=== PATIENT | male | born 1985 | race Caucasian/White ===

== ENCOUNTER 2018-05-09 15:34 | Emergency (ER) | payer OTHER ==
[2018-05-09] MEDS ORDERED: Sodium Chloride 0.9% 10 ML Syringe FLUSH PRN (15:43)
--- NOTE | 2018-05-09 16:35 | EDM.PDOC ---
ED HPI GENERAL MEDICAL PROBLEM - General Chief Complaint: Chest Pain Stated Complaint: [facility] Time Seen by Provider: 05/09/18 15:43 Source of Information: Reports: Patient, RN Notes Reviewed - History of Present Illness INITIAL COMMENTS - FREE TEXT/NARRATIVE: 33-year-old male has been brought in by [facility] ambulance for evaluation of chest discomfort. [place] 15 miles auto [employer] [employer] when he started having discomfort of his left anterior chest. 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 He states a cardiac stent was placed at [facility]. He is on Plavix, metoprolol and a statin. He takes aspirin whenever he "feels some discomfort". He states he does get occasional episodes of discomfort, has had a lot of ED visits so far things have been checking out okay for him. This was more severe and prolonged discomfort than typical and therefore he felt the need to be checked out emergently. The chest discomfort is gone. Some dizziness and short of breath at the time of symptoms. Before meals had 2 fairly intense episodes of discomfort each lasted at least a few seconds. No radiation of pain to the shoulder or arm. No radiation of discomfort to his back. No abdominal pain nausea vomiting or diaphoresis. Left Arm Pain Score (Numeric/FACES): 2 - Related Data Allergies Allergy/AdvReac Type Severity Reaction Status Date / Time aluminum hydroxide Allergy Hives Verified 05/09/18 15:35 [From Mylanta] calcium carbonate Allergy Hives Verified 05/09/18 15:35 [From Mylanta] magnesium [From Mylanta] Allergy Hives Verified 05/09/18 15:35 magnesium hydroxide Allergy Hives Verified 05/09/18 15:35 [From Mylanta] simethicone [From Mylanta] Allergy Hives Verified 05/09/18 15:35 Home Meds: Home Meds Clopidogrel [Plavix] 75 mg PO DAILY 05/09/18 [History] Metoprolol Succinate 1 tab PO DAILY 05/09/18 [History] atorvaSTATin [Lipitor] 1 tab PO DAILY 05/09/18 [History] Past Medical History Cardiovascular History: Reports: [place] Neurological History: Reports: [place] - Past Surgical History Cardiovascular Surgical History: Reports: Other (See Below) Other Cardiovascular Surgeries/Procedures: stent placement Social & Family History - Tobacco Use Smoking Status *Q: Never Smoker Second Hand Smoke Exposure: No - Caffeine Use Caffeine Use: Reports: Coffee - Recreational Drug Use Recreational Drug Use: No ED ROS GENERAL - Review of Systems Review Of Systems: See Below Constitutional: Denies: Fever, Chills, Diaphoresis HEENT: Reports: No Symptoms Respiratory: Reports: Shortness of Breath. Denies: Pleuritic Chest Pain (Gone) , Cough Cardiovascular: Reports: Chest Pain (Non-) GI/Abdominal: Denies: Abdominal Pain, Nausea, Vomiting Musculoskeletal: Denies: Shoulder Pain, Arm Pain, Back Pain Skin: Reports: No Symptoms Neurological: Reports: Dizziness (Gone) Psychiatric: Reports: Anxiety (No better) ED EXAM, GENERAL - Physical Exam Exam: See Below General Appearance: Alert, Anxious Eye Exam: Bilateral Eye: PERRL Throat/Mouth: Normal Inspection Head: Atraumatic. No: Facial Swelling Neck: Supple, Full Range of Motion Respiratory/Chest: No Respiratory Distress, Lungs Clear, Normal Breath Sounds Cardiovascular: Regular Rate, Rhythm GI/Abdominal: Soft, Non-Tender. No: Guarding Back Exam: Normal Inspection Extremities: Normal Inspection, Normal Range of Motion Neurological: Alert, Oriented, No Motor/Sensory Deficits Skin Exam: Warm, Dry, Normal Color EKG INTERPRETATION EKG Date: 05/09/18 [place]: Normal P-Wave: Present QRS: Normal ST-T: Elevated ([address] elevation V2, T-wave inversion in lead 3) Course - Vital Signs Last Recorded V/S: Last Vital Signs Temp 98 F 05/09/18 15:37 Pulse 81 05/09/18 15:37 Resp 16 05/09/18 15:37 BP 120/69 05/09/18 15:37 Pulse Ox 96 05/09/18 15:37 - Orders/Labs/Meds Orders: Active Orders 24 hr Category Date Time Status EKG 12 Lead [EKG Documentation Completion] [RC] STAT Care 05/09/18 15:43 Active Peripheral IV Care [RC] . DIRECTED Care 05/09/18 15:44 Active Chest 1V Frontal [CR] Stat Exams 05/09/18 15:43 Taken Sodium Chloride 0.9% [Saline Flush] Med 05/09/18 15:43 Active 10 ml FLUSH ASDIRECTED PRN Peripheral IV Insertion Adult [OM.PC] Stat Oth 05/09/18 15:44 Ordered Medication Orders Sodium Chloride (Saline Flush) 10 ml FLUSH ASDIRECTED PRN PRN Reason: Keep Vein Open Last Admin: 05/09/18 16:09 Dose: 10 ml Labs: Laboratory Tests 05/09/18 05/09/18 05/09/18 Range/Units 16:00 16:00 19:00 WBC 7.22 (4.23-9.07) K/mm3 RBC 4.87 (4.63-6.08) M/mm3 Hgb 14.7 (13.7-17.5) gm/L Hct 43.4 (40.1-51.0) % MCV 89.1 (79.0-92.2) fl MCH 30.2 (25.7-32.2) pg MCHC 33.9 (32.2-35.5) g/dl RDW Std Deviation 44.3 H (35.1-43.9) fL Plt Count 239 (163-337) K/mm3 MPV 10.8 (9.4-12.3) fl Neut % (Auto) 52.8 (34.0-67.9) % Lymph % (Auto) 34.6 (21.8-53.1) % [place] % (Auto) 9.4 (5.3-12.2) % Eos % (Auto) 2.5 (0.8-7.0) Baso % (Auto) 0.4 (0.1-1.2) % Neut # (Auto) 3.81 (1.78-5.38) K/mm3 Lymph # (Auto) 2.50 (1.32-3.57) K/mm3 [place] # (Auto) 0.68 (0.30-0.82) K/mm3 Eos # (Auto) 0.18 (0.04-0.54) K/mm3 Baso # (Auto) 0.03 (0.01-0.08) K/mm3 Sodium 143 (136-145) mEq/L Potassium 3.8 (3.5-5.1) mEq/L Chloride 105 (98-107) mEq/L Carbon Dioxide 26 (21-32) mEq/L Anion Gap 15.8 H (5-15) BUN 16 (7-18) mg/dL Creatinine 1.1 (0.7-1.3) mg/dL Est Cr Clr Drug Dosing 102.88 mL/min Estimated GFR (MDRD) > 60 (>60) mL/min BUN/Creatinine Ratio 14.5 (14-18) Glucose 92 (74-106) mg/dL Calcium 8.7 (8.5-10.1) mg/dL Total Bilirubin 0.6 (0.2-1.0) mg/dL AST 44 H (15-37) U/L ALT 92 H (16-63) U/L Alkaline Phosphatase 105 (46-116) U/L Troponin I < 0.017 < 0.017 (0.00-0.056) ng/mL Total Protein 7.4 (6.4-8.2) g/dl Albumin 3.9 (3.4-5.0) g/dl Globulin 3.5 gm/dL Albumin/Globulin Ratio 1.1 (1-2) Meds: Medications Generic Name Dose Route Start Last Admin Trade Name Freq PRN Reason Stop Dose Admin Sodium Chloride 10 ml 05/09/18 15:43 05/09/18 16:09 Saline Flush FLUSH 10 ml ASDIRECTED PRN Administration Keep Vein Open - Re-Assessments/Exams Free Text/Narrative Re-Assessment/Exam: 05/09/18 17:00. Initial troponin did come back normal. Chest x-ray looks good other labs also normal. Plan to do a 3 hour troponin. 19:40. Repeat troponin did come back normal patient has been resting comfortably pain-free no ectopy. Discharge instructions as documented. Departure - Departure Time of Disposition: 19:54 Disposition: Home, Self-Care 01 Condition: Fair Clinical Impression: Atypical chest pain Referrals: PCP,Unknown [Primary Care Provider] - Forms: ED Department Discharge Additional Instructions: Continue current medications as prescribed, follow-up with your regular medical provider early next week if having any further unusual symptoms. Return to ED if symptoms worsening in any way. - My Orders Last 24 Hours: My Active Orders 05/09/18 15:43 EKG 12 Lead [EKG Documentation Completion] [RC] STAT Chest 1V Frontal [CR] Stat Sodium Chloride 0.9% [Saline Flush] 10 ml FLUSH ASDIRECTED PRN 05/09/18 15:44 Peripheral IV Care [RC] . DIRECTED Peripheral IV Insertion Adult [OM.PC] Stat - Assessment/Plan Last 24 Hours: My Active Orders 05/09/18 15:43 EKG 12 Lead [EKG Documentation Completion] [RC] STAT Chest 1V Frontal [CR] Stat Sodium Chloride 0.9% [Saline Flush] 10 ml FLUSH ASDIRECTED PRN 05/09/18 15:44 Peripheral IV Care [RC] . DIRECTED Peripheral IV Insertion Adult [OM.PC] Stat
--- NOTE | 2018-05-10 08:48 | CR ---
Chest: Portable view of the chest was obtained. Comparison: No prior chest x-ray. Heart size and mediastinum are normal. Lungs are clear with no acute parenchymal change. Bony structures are grossly intact. Impression: 1. Nothing acute is seen on portable chest x-ray. Diagnostic code #1
== END 2018-05-09 20:07 | disposition home or self-care (01) ==
LOC: JD.ED 15:34
DX: R07.89 Other chest pain (principal); Z88.8 Allergy status to other drugs, medicaments and biological substances; Z79.899 Other long term (current) drug therapy
CPT/HCPCS: 36415; 71045; 71045-26; 80053; 84484; 85025; 93005; 93010; 99284; 99285-25